=== PATIENT | male | born 1995 ===

== ENCOUNTER 2018-05-07 19:06 | Emergency (ER) | payer SELFPAY ==
[2018-05-07] MEDS ORDERED: Ibuprofen TAB* 600 MG PO ONE (20:09)
[2018-05-07 20:12] VITALS: BP 110/70
--- NOTE | 2018-05-07 20:12 | UC ---
Knee Pain HPI - HPI Summary HPI Summary: 23-year-old male comes in with a chief complaint of right knee pain. Several hours ago the patient turned and felt a pop in his right knee. Had immediate onset of pain. He has swelling. He has some limited range of motion and cannot completely extend the right knee. Patient's had surgery on this knee in the past in [place]. In February of this year he had a similar episode but after couple hours the knee popped again and everything went back to normal. Patient is unable to bear weight on the knee. Attempted to bear weight causes more pain. Ice and elevation decreases the pain. - History of Current Complaint Stated Complaint: R KNEE INJURY Time Seen by Provider: 05/07/18 19:53 - Allergies/Home Medications Allergies/Adverse Reactions: Allergies Allergy/AdvReac Type Severity Reaction Status Date / Time No Known Allergies Allergy Verified 05/07/18 20:12 PMH/Surg Hx/FS Hx/Imm Hx Previously Healthy: Yes - Surgical History Surgery Procedure, Year, and Place: RT KNEE SURGERY - Family History Known Family History: Positive: Non-Contributory Review of Systems All Other Systems Reviewed And Are Negative: Yes Constitutional: Positive: Negative Skin: Positive: Negative Eyes: Positive: Negative ENT: Positive: Negative Respiratory: Positive: Negative Cardiovascular: Positive: Negative Gastrointestinal: Positive: Negative Motor: Positive: Decreased ROM Neurovascular: Positive: Negative Musculoskeletal: Positive: Arthralgia, Decreased ROM, Other: - SEE HPI Neurological: Positive: Negative Psychological: Positive: Negative Is Patient Immunocompromised?: No Physical Exam Triage Information Reviewed: Yes Appearance: Well-Appearing, Well-Nourished, Pain Distress - WITH ROM RT KNEE Vital Signs Reviewed: Yes Eye Exam: Normal Eyes: Positive: Conjunctiva Clear Neck exam: Normal Neck: Positive: Supple Respiratory: Positive: No respiratory distress Musculoskeletal: Positive: Other: - Right knee has an effusion. He is tender to palpation on the medial anterior portion of the knee. Patient has good range of motion except for the ability to completely extend the knee. Neurological Exam: Normal Neurological: Positive: Alert, Muscle Tone Normal Psychological Exam: Normal Psychological: Positive: Age Appropriate Behavior Skin Exam: Normal Knee Pain Course/Dx - Course Course Of Treatment: I discussed the x-rays with the patient. I do not see any fracture radiologist reading is pending. In clinic we gave him an Cabrera wrap on his knee and is neurovascularly intact after placement of the Cabrera wrap by nursing. Also given crutches. At this time is cannot extend his knee completely we sent him home with a knee immobilizer to be used if his knee isn't able to fully extend it feels unstable when he can start using the knee immobilizer. The overall plan is ice anti-inflammatories rest and follow-up with orthopedics. - Differential Dx/Diagnosis Provider Diagnosis: Effusion, right knee, Internal derangement of right knee Discharge - Sign-Out/Discharge Documenting (check all that apply): Patient Departure All imaging exams completed and their final reports reviewed: No - Discharge Plan Condition: Stable Disposition: HOME Patient Education Materials: Crutch Instructions (ED), Swollen Knee Joint (ED) , Knee Pain (ED) Forms: *Work Release Referrals: Reva Barrios MD [Medical Doctor] - Additional Instructions: FOLLOW UP WITH ORTHOPEDICS. GET RECHECKED SOONER FOR ANY WORSENING OF YOUR CONDITION OR QUESTIONS OR CONCERNS. - Billing Disposition and Condition Condition: STABLE Disposition: Home
--- NOTE | 2018-05-08 12:47 | UC ---
- Progress Note Progress Note: RADIOLOGY REPORT REVIEWED. POSTSURGICAL CHANGES, NO EVIDENCE FOR FRACTURE. NO CHANGE IN MGMT. Course/Dx - Diagnoses Provider Diagnoses: Effusion, right knee, Internal derangement of right knee Discharge - Sign-Out/Discharge Documenting (check all that apply): Post-Discharge Follow Up All imaging exams completed and their final reports reviewed: Yes - Discharge Plan Condition: Stable Disposition: HOME Patient Education Materials: Crutch Instructions (ED), Swollen Knee Joint (ED) , Knee Pain (ED) Forms: *Work Release Referrals: Reva Barrios MD [Medical Doctor] - Additional Instructions: FOLLOW UP WITH ORTHOPEDICS. GET RECHECKED SOONER FOR ANY WORSENING OF YOUR CONDITION OR QUESTIONS OR CONCERNS. - Billing Disposition and Condition Condition: STABLE Disposition: Home
== END 2018-05-07 20:20 | disposition home or self-care (01) ==
LOC: UCEAST 19:06
DX: M25.461 Effusion, right knee (principal); M23.91 Unspecified internal derangement of right knee
CPT/HCPCS: 99203; A9270-GY; G0463

== ENCOUNTER 2018-06-03 15:09 | Emergency (ER) | payer BC ==
--- OUTSIDE RECORDS SUMMARY | 2018-06-03 15:16 | XMS REPORT | Continuity of Care Document ---
:1995 External Reference #:[id number] Author Name Janeth Pérezten Care Team Providers Name Role Phone Patient's Choice Primary Care Physician Unavailable Payers Date Identification Numbers Payment Provider Subscriber Policy Number: [id number] [facility] Thomas Zelaya PayID: [id number] [address] [address] [place] [address] Advance Directives Description No Information Available Problems Active Problems Provider Date Knee joint effusion Ryan Mcmillan MD Onset: 05/09/2018 Joint derangement Ryan Mcmillan MD Onset: 05/09/2018 Family History Description No Information Available Social History Type Date Description Comments Sex Unknown Lives With Roommate Occupation Currently Working ETOH Use Occasionally consumes alcohol Tobacco Use Start: Unknown Patient has never smoked Smoking Status Reviewed: 05/30/18 Patient has never smoked Exercise Type/Frequency Exercises regularly Allergies, Adverse Reactions, Alerts Description No Known Drug Allergies Medications Description No Active Medications Immunizations Description No Information Available Vital Signs Date Vital Result Comment 05/30/2018 11:13am Height 74 inches 6'2" Weight 200.00 lb Heart Rate 72 /min Body Temperature 98.0 F O2 % BldC Oximetry 97 % BMI (Body Mass Index) 25.7 kg/m2 05/09/2018 8:43am Height 74.0 inches 6'2" Weight 200.00 lb BP Systolic 118 mmHg BP Diastolic 80 mmHg Pain Level 0 BMI (Body Mass Index) 25.7 kg/m2 Results Description No Information Available Procedures Description No Information Available Encounters Type Date Location Provider Dx Diagnosis Office Visit 05/09/2018 Orthopedic Ryan Garcia M25.362 Other [facility] Mcmillan MD instability, left knee M25.462 Effusion, left knee Plan of Treatment 05/30/2018 - Ryan Mcmillan, [id number] Other tear of medial meniscus, current injury, right knee, subsequent encounterFollow up:Follow up: as needed for surgery. Patient will talk to his boss and his parents.
[2018-06-03 15:35] VITALS: BP 114/62
--- NOTE | 2018-06-03 16:21 | UC ---
General HPI - HPI Summary HPI Summary: day 3 of fatigue, sore throat, runny nose and dry cough. no fever or sob. no prior hx mono. - History of Current Complaint Chief Complaint: UCRespiratory Stated Complaint: FATIGUE/SORE THROAT/COUGH/CONGESTION Time Seen by Provider: 06/03/18 15:54 Hx Obtained From: Patient Timing: Constant Pain Intensity: 0 Associated Signs & Symptoms: Negative: Fever, SOB, Wheezing - Allergy/Home Medications Allergies/Adverse Reactions: Allergies Allergy/AdvReac Type Severity Reaction Status Date / Time No Known Allergies Allergy Verified 06/03/18 15:30 PMH/Surg Hx/FS Hx/Imm Hx Previously Healthy: Yes - Surgical History Surgical History: Yes Surgery Procedure, Year, and Place: RT KNEE SURGERY - ACL. Rt TIBIA - SPIRAL FX - W/ HARDWARE - Family History Known Family History: Positive: Non-Contributory - Social History Occupation: Employed Full-time Alcohol Use: Weekly Alcohol Amount: 1xweek Substance Use Type: None Smoking Status (MU): Never Smoked Tobacco Review of Systems All Other Systems Reviewed And Are Negative: Yes Constitutional: Positive: Fatigue ENT: Positive: Sore Throat Respiratory: Positive: Cough Physical Exam Triage Information Reviewed: Yes Appearance: Well-Appearing Vital Signs: Initial Vital Signs Temp 98.8 F 06/03/18 15:31 Pulse 79 06/03/18 15:31 Resp 16 06/03/18 15:31 BP 114/62 06/03/18 15:31 Pulse Ox 98 06/03/18 15:31 Vital Signs Reviewed: Yes Eyes: Positive: Conjunctiva Clear ENT: Positive: Pharyngeal erythema - slight, TMs normal, Uvula midline. Negative: Nasal congestion, Nasal drainage, Trismus, Muffled voice, Hoarse voice Neck: Positive: Supple, Nontender, No Lymphadenopathy Respiratory: Positive: Lungs clear, Normal breath sounds, No respiratory distress Cardiovascular: Positive: RRR, No Murmur Abdomen Description: Positive: Nontender, No Organomegaly, Soft Bowel Sounds: Positive: Present Musculoskeletal: Positive: ROM Intact Neurological: Positive: Alert Psychological: Positive: Age Appropriate Behavior Skin Exam: Normal Skin: Negative: Rashes Course/Dx - Course Course Of Treatment: DIAGNOSTIC: RAPID STREP IS NEGATIVE. CBC WITH DIFF AND MONO TESTING IS PENDING. - Diagnoses Provider Diagnosis: URI (upper respiratory infection), Sore throat, Cough Discharge - Sign-Out/Discharge Documenting (check all that apply): Patient Departure All imaging exams completed and their final reports reviewed: No Studies - Discharge Plan Condition: Stable Disposition: HOME Prescriptions: Benzonatate CAP* [Tessalon 100 MG CAP*] 100 mg PO TID PRN #10 cap PRN Reason: Cough Patient Education Materials: Pharyngitis (ED), Upper Respiratory Infection (DC) , Acute Cough (ED) Forms: *Work Release Referrals: London Muñoz MD [Medical Doctor] - 7 Days - Billing Disposition and Condition Condition: STABLE Disposition: Home - Attestation Statements Provider Attestation: Patient not seen by me. I was available for consult. I did not disposition this patient
[2018-06-04 11:34] LABS: Hematocrit 45 % (36-46); Hemoglobin 14.9 g/dL (14.0-18.0); Mean Corpuscular HGB Conc 33 g/dL (31-36); Mean Corpuscular Hemoglobin 29 pg (27-31); Mean Corpuscular Volume 87 fL (80-94); Mean Platelet Volume 10.5 fL (7.4-10.4); Platelet Count 235 10^3/uL (150-450); Red Blood Count 5.16 10^6 /uL (4.18-5.48); Red Cell Distribution Width 15 % (10.5-15); White Blood Count 10.1 10^3/uL (3.5-10.8)
[2018-06-04 12:42] LABS: ABS Basophils 0 10^3/ul (0-0.2); ABS Eosinophils 0.2 10^3/ul (0-0.6); ABS Lymphocytes 1.2 10^3/ul (1.0-4.8); ABS Monocytes 1.4 10^3/ul (0-0.8); ABS Neutrophils 7.2 10^3/ul (1.5-7.7); ABS Nucleated RBC 0 10^3/ul; Eosinophil % 1.8 %; Lymphocyte % 12.3 %; Nucleated Red Blood Cells % 0.2
--- NOTE | 2018-06-05 07:09 | UC ---
- Progress Note Progress Note: CBC with dif reviewed - non concerning monospot neg ljj 06/05/18 Course/Dx - Diagnoses Provider Diagnoses: URI (upper respiratory infection), Sore throat, Cough Discharge - Sign-Out/Discharge Documenting (check all that apply): Post-Discharge Follow Up All imaging exams completed and their final reports reviewed: No Studies - Discharge Plan Condition: Stable Disposition: HOME Prescriptions: Benzonatate CAP* [Tessalon 100 MG CAP*] 100 mg PO TID PRN #10 cap PRN Reason: Cough Patient Education Materials: Pharyngitis (ED), Upper Respiratory Infection (DC) , Acute Cough (ED) Forms: *Work Release Referrals: London Muñoz MD [Medical Doctor] - 7 Days - Billing Disposition and Condition Condition: STABLE Disposition: Home
[2018-06-05 13:48] LABS: EBV Capsid Ag IgG Ab Positive (Negative); EBV Capsid Ag IgM Ab Negative (Negative); Epstein-Barr Nuclear Antigen Positive (Negative)
--- NOTE | 2018-06-06 07:08 | UC ---
- Progress Note Progress Note: EBV IGM neg IGG + previous infection no change carmen 06/06/18 Course/Dx - Diagnoses Provider Diagnoses: URI (upper respiratory infection), Sore throat, Cough Discharge - Sign-Out/Discharge Documenting (check all that apply): Post-Discharge Follow Up All imaging exams completed and their final reports reviewed: No Studies - Discharge Plan Condition: Stable Disposition: HOME Prescriptions: Benzonatate CAP* [Tessalon 100 MG CAP*] 100 mg PO TID PRN #10 cap PRN Reason: Cough Patient Education Materials: Pharyngitis (ED), Upper Respiratory Infection (DC) , Acute Cough (ED) Forms: *Work Release Referrals: London Muñoz MD [Medical Doctor] - 7 Days - Billing Disposition and Condition Condition: STABLE Disposition: Home
== END 2018-06-03 16:53 | disposition home or self-care (01) ==
LOC: UCCORT 15:09
DX: J06.9 Acute upper respiratory infection, unspecified (principal); J02.9 Acute pharyngitis, unspecified; R05 Cough
CPT/HCPCS: 36415; 85025; 86308; 86664; 86665; 87651; 99211; G0463